=== PATIENT | female | born 1955 | race Hispanic/Latino ===

== ENCOUNTER 2022-08-06 05:26 | Observation (INO) | payer MEDICARE ==
[~2022-08-06 05:26] MED LIST: DICLOFENAC PO; LOSARTAN POTASS25 MG PO; OMEGA 3 1,0001 EACH PO; VIT D PO; VIT D2 PO
[2022-08-06] MEDS ORDERED: LACTATED RINGER'S 1,000 ML ONE (05:48)
[2022-08-06] MEDS ORDERED: CEFAZOLIN SODIUM 2 GM ONE (05:49)
[2022-08-06] MEDS ORDERED: CELECOXIB 200 MG CAP ONE (05:49)
[2022-08-06] MEDS ORDERED: GABAPENTIN 300 MG CAP ONE (05:49)
[2022-08-06] MEDS ORDERED: DEXAMETHASONE SOD PHOS 10 MG/1 ML VIAL ONE ×2 (05:49→13:07)
[2022-08-06] MEDS ORDERED: SODIUM CHLORIDE 0.9% 500ML 500 ML ONE (06:02)
[2022-08-06] MEDS ORDERED: TRANEXAMIC ACID 20 ML ONE (06:02)
[2022-08-06] MEDS ORDERED: Vancomycin IV 1,000 MG ONE (06:02)
[2022-08-06] MEDS ORDERED: ACETAMINOPHEN 1000 MG/100 ML 100 ML IV ONE (06:33)
[2022-08-06] MEDS ORDERED: ROPIVACAINE 246.25 MG, EPINEPHRINE HCL 1:1000 1ML 0.5 MG, CLONIDINE HCL 0.08 MG, KETORO... INJ ONE ×5 (08:00)
[2022-08-06] MEDS ORDERED: HYDROCODONE/APAP 7.5MG-325MG 1 EA TAB PO PRN (08:15)
[2022-08-06] MEDS ORDERED: HYDROCODONE/APAP 5MG-325MG TAB PO PRN (08:15)
[2022-08-06] MEDS ORDERED: DIPHENHYDRAMINE HCL INJ 50 MG/ML VIAL IV PRN (08:15)
[2022-08-06] MEDS ORDERED: ONDANSETRON HCL INJ 2MG/ML 2ML 2 MG/ML VIAL IV PRN (08:15)
[2022-08-06] MEDS ORDERED: ACETAMINOPHEN 650 MG SUPP PR PRN (08:15)
[2022-08-06] MEDS ORDERED: METOCLOPRAMIDE HCL 10 MG/2ML VIAL ONE (11:25)
[2022-08-06] MEDS ORDERED: ONDANSETRON HCL INJ 2MG/ML 2ML 2 MG/ML VIAL ONE ×2 (11:25→13:00)
[2022-08-06] MEDS ORDERED: MIDAZOLAM HCL 2 MG/2 ML VIAL ONE (12:24)
[2022-08-06] MEDS ORDERED: FENTANYL CITRATE/PF 100MCG/2 ML INJ ONE (12:24)
[2022-08-06] MEDS ORDERED: DEXAMETHASONE SOD PHOS INJ 4 MG/ML SDV ONE (13:00)
[2022-08-06] MEDS ORDERED: LIDOCAINE HCL 2% LOCAL INJ 5 ML SDV VIAL INJ ONE (13:00)
[2022-08-06] MEDS ORDERED: EPHEDRINE SULFATE INJ 50 MG/ML VIAL ONE (13:00)
[2022-08-06] MEDS ORDERED: SEVOFLURANE INHAL SOLN 250 ML PEN BTL ONE (13:00)
[2022-08-06] MEDS ORDERED: GLYCOPYRROLATE INJ 0.2 MG/ML VIAL ONE (13:00)
[2022-08-06] MEDS ORDERED: POVIDONE IODINE 0.05% 0.05 % ML PO ONE (13:00)
[2022-08-06] MEDS ORDERED: PROPOFOL IV EMULSION 10 MG/ML 20 ML VIAL ONE (13:00)
[2022-08-06] MEDS ORDERED: ROPIVACAINE 0.5% 5 MG/ML 30 ML SDV ONE (13:07)
[2022-08-06] MEDS ORDERED: SODIUM CHLORIDE 0.9% 1000ML 1,000 ML IV SCH (15:00)
[2022-08-06 16:00] VITALS: BP 127/69
[2022-08-06] MEDS ORDERED: ONDANSETRON HCL 4 MG ORAL DISINTEGRATING TAB ONE (16:26)
[2022-08-06] MEDS ORDERED: CELECOXIB 200 MG CAP PO SCH (17:00)
[2022-08-06] MEDS ORDERED: ASPIRIN 325 MG TAB PO SCH (18:00)
[2022-08-06] MEDS ORDERED: ZOLPIDEM TARTRATE 5 MG TAB PO PRN (21:00)
[2022-08-07] MEDS ORDERED: ACETAMINOPHEN 1000 MG/100 ML IV PRN (08:15)
== END 2022-08-06 16:35 | disposition home health service (06) ==
LOC: OR 05:26 → PACU V 08:10
PROVIDERS: ADMIT Specialist; ATTEND Specialist
DX: M17.11 Unilateral primary osteoarthritis, right knee (principal); I11.9 Hypertensive heart disease without heart failure; Z20.822 Contact with and (suspected) exposure to COVID-19; Z01.812 Encounter for preprocedural laboratory examination; Z01.818 Encounter for other preprocedural examination; Z79.899 Other long term (current) drug therapy; Z68.34 Body mass index [BMI] 34.0-34.9, adult
CPT/HCPCS: 0223U; 27447; 36415; 71046; 73560; 86850; 86900; 86920; 97116; 97139; 97161; 97530; C1713 ×2; C1776 ×3; G0378; J0131; J0171; J1100 ×2; J1885; J2001; J2250; J2405; J2704; J2765; J2795; J3010; J3370; J7040; J7121; Q0162